=== PATIENT | female | born 2000 | race Caucasian/White ===

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

== ENCOUNTER 2022-07-07 09:23 | Emergency (ER) | payer OTHER ==
[~2022-07-07] VITALS: Ht 167.6 cm; Wt 64.9 kg
[~2022-07-07 09:23] MED LIST: ACET-716 PO; ZOFR4TAB14 PO
[2022-07-07] MEDS ORDERED: ONDANSETRON 4MG ORAL DISINTEGRATING TAB PO ONE (12:00)
[2022-07-07] MEDS ORDERED: ONDA4TAB6 PO (12:01)
[2022-07-07] MEDS ORDERED: CYCL-707 PO (12:01)
[2022-07-07 12:16] VITALS: BP 139/75
== END 2022-07-07 12:17 | disposition home or self-care (01) ==
LOC: M ED 09:23
DX: S80.12XA Contusion of left lower leg, initial encounter (principal); V43.52XA Car driver injured in collision with other type car in traffic accident, initial encounter; I11.0 Hypertensive heart disease with heart failure